=== PATIENT | female | born 1965 | race Caucasian/White ===

== ENCOUNTER → 2018-05-16 | Outpatient (CLI) | payer BC ==
[~2018-05-16] MED LIST: GADOBUTROL 10 ML VIAL IVP ONE; GADOXETATE DISODIUM 2.5 MMOL/10 ML VIAL IV ONE
== END ==
LOC: FIMAGING 06:25
PROVIDERS: ATTEND Family Medicine
DX: K76.9 Liver disease, unspecified (principal); K80.20 Calculus of gallbladder without cholecystitis without obstruction
CPT/HCPCS: 74183; A9581; A9585